=== PATIENT | female | born 1995 | race Caucasian/White ===

== ENCOUNTER 2022-12-16 10:50 | Emergency (ER) | payer OTHER, MEDICAID ==
[2022-12-16 11:46] LABS: Pregnancy Test - Urine (BHCG) Negative (Negative); Pregu Control Background? CLEAR/WHITE (CLR/WHITE); Pregu Control Bar Appear? YES (CONTROL BAR); Specific Gravity 1.029 (1.002-1.036)
== END 2022-12-16 12:07 | disposition home or self-care (01) ==
LOC: MADERS 10:50
DX: S93.601A Unspecified sprain of right foot, initial encounter (principal); W01.0XXA Fall on same level from slipping, tripping and stumbling without subsequent striking against object, initial encounter; Y99.0 Civilian activity done for income or pay
CPT/HCPCS: 81025

== ENCOUNTER 2024-07-11 08:29 | Emergency (ER) | payer OTHER ==
[2024-07-11] MEDS ORDERED: Dexamethasone 4 MG TAB ONE (08:53)
[2024-07-11] MEDS ORDERED: Azithromycin 250 MG TAB ONE (08:53)
== END 2024-07-11 09:02 | disposition home or self-care (01) ==
LOC: MADERS 08:29
DX: H65.93 Unspecified nonsuppurative otitis media, bilateral (principal)
CPT/HCPCS: 99282; J8540